=== PATIENT | female | born 1960 | race Caucasian/White ===

== ENCOUNTER 2018-11-30 21:34 | Inpatient (IN) | payer OTHER ==
[~2018-11-30] VITALS: Ht 157.5 cm; Wt 79.8 kg
[~2018-11-30 21:34] MED LIST: FLEXERIL PO; LIDODERM 5%1 PATC1 TRANSDERM; PROAIR HFA8.5 GM INH; SKELAXIN 800 M800 M1 PO; TRAMADOL 50 MG50 MG PO; ULTRAM 50MG TAB50 MG PO
[2018-11-30 21:39] VITALS: BP 171/78
[2018-11-30] MEDS ORDERED: ZPAK PO (21:46)
[2018-11-30] MEDS ORDERED: PAXIL10 MG PO (21:49)
[2018-11-30 22:05] LABS: ABSOLUTE BASOPHILS 0.1 thou/uL (0.0-0.2); ABSOLUTE EOSINOPHILS 0.1 thou/uL (0.0-0.7); ABSOLUTE LYMPHOCYTES 1.3 thou/uL (0.8-5.3); ABSOLUTE MONOCYTES 0.5 thou/uL (0.0-1.2); ABSOLUTE NEUTROPHILS 6.2 thou/uL (1.6-8.1); BASOPHILS 1.1 %; EOSINOPHILS 0.8 %; HEMATOCRIT 38.3 % (37.0-47.0); HEMOGLOBIN 13.4 gm/dL (12.0-15.0); LYMPHOCYTES 15.8 %; MCHC 34.9 g/dL (28.0-37.0); MCV 85.9 fL (80.0-100.0); MONOCYTES 6.7 %; MPV 7.7 fl. (7.2-11.1); NUCLEATED RBCS 0 /100WBC; PLATELET COUNT* 208 thou/uL (150-400); POLYS 75.6 %; RBC 4.45 mil/uL (4.20-5.00); RDW-CV 13.3 % (10.5-14.5); WBC 8.1 thou/uL (4.0-11.0)
[2018-11-30 22:26] LABS: ALBUMIN 3.9 g/dL (3.4-5.0); POTASSIUM 3.4 mmol/L (3.5-5.1); TOTAL BILIRUBIN 0.6 mg/dL (<0.1-1.0); TOTAL PROTEIN 7.3 g/dL (6.4-8.2); TROPONIN-I LEVEL 0.07 ng/mL (<0.06)
[2018-11-30 22:27] LABS: INFLUENZA A ANTIGEN None Detected (None Detect); INFLUENZA B ANTIGEN None Detected (None Detect)
[2018-11-30 23:50] VITALS: BP 134/83
--- NOTE | 2018-12-01 05:25 | NUR ---
PT RECIEVED FROM ED AND MN. SAT MAINTAINED IN RA, C/O SOB, CONNECTED TO 2L NC. ALERT AND ORIENTED X4. CALL LIGHT WITHIN REACH AND BED IN LOW POSITION. PT LACTIC ACID INCREASED, INFORMED PHYSICIAN ORDERS RECIEVED AND IMPLEMENTED. HOURLY ROUNDING DONE FOR PT SAFETY.
[2018-12-01 05:44] LABS: URINE BILIRUBIN NEGATIVE (Negative); URINE BLOOD NEGATIVE (Negative); URINE CLARITY CLEAR; URINE COLOR YELLOW; URINE GLUCOSE-RANDOM NEGATIVE (Negative); URINE KETONES NEGATIVE (Negative); URINE LEUKOCYTES 1+ (Negative); URINE NITRITE NEGATIVE (Negative); URINE PROTEIN NEGATIVE (Negative); URINE UROBILINOGEN 0.2 E.U./dl (0.2-1.0)
[2018-12-01 05:56] LABS: BACTERIA 1-9 Few /HPF (None Seen); CASTS None Seen /LPF (None Seen); CRYSTALS None Seen /LPF (None Seen); MUCUS 0-3 Light strn/LPF (None Seen); SQUAMOUS 0-3 Few /LPF (0-3); URINE RBC 0-2 Rare /HPF (0-2); URINE WBC 0-5 Rare /HPF (0-5)
--- NOTE | 2018-12-01 08:00 | NUR ---
ASSUMED PT CARE AT 0700, A&O X4, UP AD KEVIN, CALL LIGHT IN REACH. VSS, REMAINS ON 2LPM O2, AFEBRILE, LS DIMINISHED, RN BURN TRACING SINUS RHYTHM. DENIES ANY PAIN/SOA. WILL CONT POC.
[2018-12-01 12:40] VITALS: BP 121/56
--- NOTE | 2018-12-01 15:15 | NUR ---
Pt in shower when CM went to assess, will f/u later
[2018-12-01 16:00] VITALS: BP 106/54
--- NOTE | 2018-12-01 17:39 | EKG ---
[place] [address] ELECTROCARDIOGRAM REPORT Name: KRYSTAL NAIR Room: [address] ADM IN ..#: [id number] Admission: 11/30/18 Attend Phys: Tevin Velazquez MD Discharge: Date of : 60 Report #: [id number] THIS REPORT FOR: //name// [facility] ED Test Date: 2018-11-30 Test Time: 21:51:04 Pat Name: KRYSTAL NAIR Department: Room: [facility] Gender: F Housekeeping Supervisor: Terrell MUÑOZ : 1960 Requested By: Zak Patel Order Number: [id number] MD: Earnest Walker Measurements Intervals [place] Rate: 103 P: 72 VT: 157 QRS: 79 QRSD: 92 T: -34 QT: 330 QTc: 432 Interpretive Statements Sinus tachycardia Borderline repolarization abnormality Compared to ECG 06/01/2015 12:10:51 Sinus rhythm no longer present ST (T wave) deviation no longer present Electronically Signed On 12-01-2018 17:39:40 CDT by Earnest Walker [email or web address] <ELECTRONICALLY SIGNED> By: Earnest Walker MD, FACC 12/01/18 1739 [id number] Earnest Walker MD, FAC /EPI
--- NOTE | 2018-12-01 18:39 | NUR ---
PT A&O X4, VSS, REMAINS ON 2LPM VIA NC, AFEBRILE. HOURLY ROUNDING COMPLETED, PT DENIES ANY PAIN BUT BECOMES SOA WITH EXERTION, LS CLEAR IN BILATERAL UPPER LOBES, DIMINISHED IN BILATERAL LOWER LOBES.
[2018-12-01 20:23] VITALS: BP 117/56
[2018-12-02] VITALS: BP 118/56
[2018-12-02 08:00] VITALS: BP 131/65
--- NOTE | 2018-12-02 08:00 | NUR ---
ASSUMED PT CARE AT 0700, A&O X4, VSS, REMAINS ON 2LPM O2 VIA NC WITH SAO2 AT 91%, AFEBRILE BUT SKIN IS FLUSHED AND WARM. LS COARSE WITH WHEEZING IN BILATERAL UPPER LOBES. PT STATES SHE CONT TO FEEL FATIGUED, ENCOURAGED PT TO REST. IV IN RIGHT WRIST, FLUIDS RUNNING AT 150ML/HR. WILL CONT POC.
--- NOTE | 2018-12-02 08:29 | NUR ---
PT IS ABLE TO COMMUNICATE HER NEEDS TO STAFF EFFECTIVELY. SHE HAS DENIED THE NEED FOR PAIN MEDICATION UP TO THIS TIME. SHE IS MED/SURG STATUS. POSSIBLE DISCHARGE TODAY.
--- NOTE | 2018-12-02 12:26 | NUR ---
Pt is A&O. Resides at home with her and other family members. Normally active and independent. No DME. No hx of HH or SNF. Goal is home at dc. Per Pt, she believes that she may need home o2 at dc, Pt anticipates that she will dc tomorrow. Following
[2018-12-02 12:49] VITALS: BP 122/62
[2018-12-02 17:41] VITALS: BP 148/70
--- NOTE | 2018-12-02 18:16 | NUR ---
PT UP IN CHAIR, VSS, REMAINS ON O2 AT 2LPM VIA NC. MED SURG STATUS, HOURLY ROUNDING COMPLETED. PROGRESSION TOWARDS GOAL OF DISCHARGING HOME TOMORROW, PT STATES SHE DOES FEEL BETTER BUT AGREES THAT STAYING ANOTHER NIGHT FOR REST AND MEDICATION WOULD BE BEST D/T RESPONSIBILITIES AT HOME.
[2018-12-02 19:25] VITALS: BP 138/65
[2018-12-03] VITALS: BP 138/64
--- NOTE | 2018-12-03 02:37 | NUR ---
ASSUMED CARE OF PT AT 1900. PT IS ALERT AND ORIENTED. VSS. PERRLA. NO COMPLAINTS OF PAIN. PT IS UP AD KEVIN. PT IS SLEEPING QUIETLY IN BED. RESPIRATIONS ARE EVEN AND NONLABORED. WILL CONTINUE TO MONITOR PT.
[2018-12-03 05:26] LABS: HEMATOCRIT 35.5 % (37.0-47.0); MCH 29.7 pg (26.0-34.0); MCHC 33.7 g/dL (28.0-37.0); MPV 8.4 fl. (7.2-11.1); NUCLEATED RBCS 0 /100WBC; PLATELET COUNT* 215 thou/uL (150-400); RBC 4.03 mil/uL (4.20-5.00); RDW-CV 13.4 % (10.5-14.5); WBC 11.6 thou/uL (4.0-11.0)
[2018-12-03 06:23] LABS: ABSOLUTE LYMPHOCYTES 0.7 thou/uL (0.8-5.3); ABSOLUTE MONOCYTES 0.6 thou/uL (0.0-1.2); ABSOLUTE NEUTROPHILS 10.3 thou/uL (1.6-8.1)
[2018-12-03 06:24] LABS: ANISOCYTOSIS 1+; PLATELET ESTIMATE ADEQUATE; POIKILOCYTOSIS 1+
[2018-12-03 08:29] VITALS: BP 148/79
--- NOTE | 2018-12-03 09:17 | NUR ---
CM provided Pt with a list of covered PCP's per her insurance, Pt stated that she had been current with Dr Hnison's office, but has since been "fired." CM to schedule appt with new
[2018-12-03] MEDS ORDERED: CEFDINIR300 MG PO (11:11)
[2018-12-03] MEDS ORDERED: PREDNISONE 10 M10 MG PO (11:11)
[2018-12-03] MEDS ORDERED: ALBUTEROL2.5 MG/0.5 INH (11:12)
[2018-12-03 12:00] VITALS: BP 148/79
--- NOTE | 2018-12-03 12:23 | NUR ---
PT A/O AND ALL VSS ON ROOM AIR. DENIES CP, N/V. C/O MINIMAL SOA. EDUCATED ON SAFETY AND PLAN OF CARE. LOOKING FORWARD TO DC. PLEASE SEE ASSESSMENT FOR ADDITIONAL INFORMATION. WILL CONTINUE TO MONITOR
--- NOTE | 2018-12-03 12:26 | NUR ---
Pt discharging to home today, Pt does not qualify for home o2
== END 2018-12-03 13:30 | disposition home or self-care (01) | DRG 193 ==
LOC: M.ERS 21:34 → M.2W 22:59 → M.TBA-ER 22:59 → M.2W 12-01 00:19
PROVIDERS: Emergency Medicine Emergency Medical Services; ADMIT Internal Medicine
DX: J15.9 Unspecified bacterial pneumonia (principal); J96.01 Acute respiratory failure with hypoxia; J45.901 Unspecified asthma with (acute) exacerbation; J04.0 Acute laryngitis; Z79.52 Long term (current) use of systemic steroids; Z79.899 Other long term (current) drug therapy; Z88.0 Allergy status to penicillin; Z88.5 Allergy status to narcotic agent; Z82.5 Family history of asthma and other chronic lower respiratory diseases; Z28.21 Immunization not carried out because of patient refusal

== ENCOUNTER → 2019-04-28 | Outpatient (CLI) | payer OTHER ==
[~2019-04-28] MED LIST changes: +ALBUTEROL2.5 MG/0.5 INH; +CEFDINIR300 MG PO; +PAXIL10 MG PO; +PREDNISONE 10 M10 MG PO; +ZPAK PO
--- NOTE | 2019-04-30 08:28 | PF ---
[address] [address] PULMONARY FUNCTION REPORT Name: KRYSTAL NAIR [id number] Admission: 04/28/19 Attend Phys: Gisel Allan MD Discharge: Date of : 60 Report #: [id number] THIS REPORT FOR: //name// CC: Ady Sawant DO Gisel Allan MD DATE OF SERVICE: 04/28/2019 A 69-year-old female with cough and shortness of breath. Full PFTs were performed. Spirometry demonstrates mild obstructive defect. No significant bronchodilator response. She did have small airways disease, which did improve after bronchodilator. Best study shows an FEV1 of 2.05, FVC of 2.9, ratio was 70%, FEV1 was 86% of predicted. Mid-flow rates were diminished at 50 and 64% of predicted. Some improvement after bronchodilator noted. Lung volumes performed via plethysmography showed TLC to be within normal limits at 4.56 at 100% of predicted and RV lower limits of normal at 83% of predicted. Diffusion when corrected for alveolar volume was normal at 95. IMPRESSION: Abnormalities suggest very mild obstructive defect with mild small airways disease. No bronchodilator response. <ELECTRONICALLY SIGNED> By: Adair Rudolph MD 04/30/19 0828 [id number] gregory [place]
== END ==
LOC: M.PUL 10:00
DX: J45.909 Unspecified asthma, uncomplicated (principal)

== ENCOUNTER → 2019-06-22 | Outpatient (CLI) | payer OTHER | LOC: M.RAD 12:47 | DX: J44.9 Chronic obstructive pulmonary disease, unspecified (principal); J45.909 Unspecified asthma, uncomplicated; R91.8 Other nonspecific abnormal finding of lung field; J98.11 Atelectasis ==

== ENCOUNTER → 2021-02-02 | Outpatient (CLI) | payer OTHER | LOC: M.RAD 12:16 | PROVIDERS: ATTEND Family Medicine | DX: Z12.31 Encounter for screening mammogram for malignant neoplasm of breast (principal) ==